=== PATIENT | male | born 2000 | race Caucasian/White ===

== ENCOUNTER 2021-05-11 07:30 | Emergency (ER) | payer OTHER ==
[~2021-05-11] VITALS: Ht 158.8 cm; Wt 49.0 kg
[2021-05-11 07:38] VITALS: BP 113/71
--- NOTE | 2021-05-11 07:43 | NUR ---
DR LEAL AT BEDSIDE EVALUATING PT
--- NOTE | 2021-05-11 07:53 | NUR ---
20 Y/O MALE C/O INTERMITTENT LEFT CHEST PAIN X2-3 MONTHS THAT HE DESCRIBES PRESSURE LIKE. DENIES INJURY/TRAUMA. PT STATES PAIN OCCURS AT REST AND ALSO WHILE WORKING OR AT RANDOM TIMES. PT STATES HE LIFTS BOXES AT WORK BUT STATES THAT THEY ARE NOT HEAVY. PT A/O X4 WITH EVEN AND UNLABORED RESPIRATIONS PMH:DENIES NKDA
--- NOTE | 2021-05-11 07:55 | NUR ---
EMT AT BEDSIDE FOR EKG
[2021-05-11] MEDS ORDERED: ALBU0.0912 IH (08:44)
--- NOTE | 2021-05-11 08:55 | NUR ---
Patient discharged with v/s stable. Written and verbal after care instructions ABOUT BRONCHOSPASM AND CHEST WALL PAIN given and explained. Patient alert, oriented and verbalized understanding of instructions. Ambulatory with steady gait. All questions addressed prior to discharge. ID band removed. Patient advised to follow up with PMD. Rx of ALBUTEROL SULFATE given. Patient educated on indication of medication including possible reaction and side effects. Opportunity to ask questions provided and answered.
== END 2021-05-11 08:53 | disposition home or self-care (01) ==
LOC: MED 07:30
DX: M79.10 Myalgia, unspecified site (principal); R07.89 Other chest pain; R06.2 Wheezing
CPT/HCPCS: 71045; 93005; 99283; Q0092